=== PATIENT | female | born 1970 | race Caucasian/White ===

== ENCOUNTER 2016-09-26 15:28 | Emergency (ER) | payer OTHER ==
--- NOTE | 2016-09-26 15:48 | ED Physician Documentation ---
Lower Extremity Injury - HISTORIAN Historian: patient - HPI Stated Complaint: r foot pain secondary to injury Chief Complaint: Foot Injury Onset: hours (last noc) Where: home Context: fall (Pt walking dog, got feet caught up in hernadez, was wearing tennis shoes. Had immediate pain in the 1st right MCP joint, has become red and swollen ) Associated Symptoms:: swelling Modifying Factors:: pain on movement - ROS CONST: no problems CVS/RESP: none - PAST HX Past History: none Allergies/Adverse Reactions: Allergies Allergy/AdvReac Type Severity Reaction Status Date / Time No Known Drug Allergies Allergy Unverified 03/25/14 13:02 - SOCIAL HX Smoking History: non-smoker Drug Use: none - FAMILY HX Family History: no significant history - VITAL SIGNS Vital Signs: Vital Signs Temp Pulse Resp BP Pulse Ox 98.0 F 80 16 158/104 99 09/26/16 15:28 09/26/16 15:28 09/26/16 15:28 09/26/16 15:28 09/26/16 15:28 - REVIEWED ASSESSMENTS Vitals Reviewed: Yes ED Results Lab/Radiology - Orders Orders: ED Orders Category Date Time Status FOOT 3 VIEWS OR MORE [RAD] Stat Exams 09/26/16 Ordered Lower Extremities Injury Phy - Physical Exam General Appearance: alert Hips: bilateral hip: non-tender, normal inspection, normal range of motion, no evidence of injury Legs: bilateral: non-tender, normal inspection, normal range of motion, no evidence of injury Knees: bilateral: non-tender, normal inspection, normal range of motion, no evidence of injury Ankle: bilateral: non-tender, normal inspection, normal range of motion, no evidence of injury Foot: right foot: limited range of motion (1st MP joint), pain (1st MP joint, tender to palpation), swelling (1st MP joint), left foot: non-tender, normal inspection, normal range of motion, no evidence of injury Gait: limited by pain Neuro/Vascular/Tendon: no vascular compromise Neck/Back: nml inspection Resp/CVS: chest non-tender, breath sounds nml, heart sounds nml, no resp. distress Abdomen: non-tender Discharge Clincal Impression: Strain of toe of right foot Additional Instructions: Try to keep foot elevated with some ice. Wear post op orthopedic shoe as needed for pian. Take Aleve up to 6 tablets daily with food as needed for pain. If symptoms do not improve to follow-up with your primary care provider to check for possible gout. Condition: Stable Disposition: 01 HOME, SELF-CARE Decision to Admit: NO Date of Decison to Admit: 09/26/16 Decision Time: 16:27
[2016-09-26 16:47] VITALS: BP 149/98
--- NOTE | 2016-09-26 18:17 | Diagnostic Imaging Report ---
[facility] [address] [facility].[address] [id number] Report Submission Date: Sep 26, 2016 4:10:50 PM SLOT FLOORPERSON Patient Study Name: ORION GONZALES Date: Sep 26, 2016 3:57:04 PM SLOT FLOORPERSON Modality Type: CR Gender: F Description: LOWER EXTREMITY : 66 Institution: [facility] Physician: ARNEL MIRAMONTES - LAKESHIA 3 views of the right foot History: PAIN AND SWELLING IN FIRST MTP (Hx) / PAIN POST TRAUMA Findings: No comparison studies There is mild hallux valgus deformity of the 1st mtp joint with adjacent soft tissue swelling, no evidence of acute fracture of the right foot Joint spaces are preserved. Plantar calcaneal enthesophyte is seen with degenerative changes of the midfoot. Impression: No evidence of acute fracture or dislocation of the right foot Mild hallux valgus. Soft tissue swelling adjacent to the 1st metatarsophalangeal joint Degenerative changes mid foot Plantar calcaneal enthesophyte Electronically signed on Sep 26, 2016 4:10:50 PM SLOT FLOORPERSON by: Gela ALMEIDA
== END 2016-09-26 16:40 | disposition home or self-care (01) ==
LOC: ED 15:28
DX: S93.501A Unspecified sprain of right great toe, initial encounter (principal); X58.XXXA Exposure to other specified factors, initial encounter; Y93.9 Activity, unspecified; Y99.9 Unspecified external cause status
CPT/HCPCS: 73630; 99283